=== PATIENT | female | born 1955 | race Caucasian/White ===

== ENCOUNTER 2022-06-22 00:08 | Observation (INO) ==
--- NOTE | 2022-06-22 00:21 | Emergency Department Note ---
History of Present Illness General Chief complaint: Hypertension Stated complaint: Headache, Nausea, Blurred Vision Time Seen by Provider: 06/22/22 00:09 Source: patient and EMS Mode of arrival: EMS Limitations: no limitations History of Present Illness Provider complaint: headache, vision changes, hypertension This is a 66-year-old female presents emergency room due to concern for headache, vision changes, and elevated blood pressure readings at home. Patient with a prior history of hypertension however after losing weight have been able to come off of her antihypertensive medications. She states she has been off them for more than a year now. She states over the course of the last week or so she has had markedly increased stress due to a family situation. She states she feels this is more likely the reason for her elevated blood pressure reading. She states she did contact her PCP but was not restarted on any antihypertensive medication as they told her it was likely situational. She is concerned though due to the consistently elevated BP readings the last week and the worsening symptoms. She states she has a sense of pressure and pain in her head, notices wavy lines and sparkling at the edge of her peripheral vision bilaterally, has been nauseated but without vomiting. She denies chest pain or trouble breathing, leg swelling, change in urine or stools, dizziness or lightheadedness. Home Medications Medication Instructions Recorded Confirmed Type escitalopram oxalate 10 mg tablet 10 mg PO QAM 06/22/22 06/22/22 History hydroxyzine HCl 10 mg tablet 10 mg PO Q8H PRN Anxiety 06/22/22 06/22/22 History ibuprofen 200 mg tablet 200 mg PO DIRECTED PRN Pain 06/22/22 06/22/22 History infliximab-dyyb 100 mg intravenous 0 mg IV .[id number] 06/22/22 06/22/22 History solution (Inflectra) Allergies Allergy/AdvReac Type Severity Reaction Status Date / Time No Known Allergies Allergy Mild Verified 06/22/22 00:40 Past Med/Surg History Social History Smoking Status: Unknown if ever smoked Tobacco Type: Cigarettes Second Hand Exposure: No; Do You Dip or Chew Tobacco: No; Tobacco Cessation Education Requested by Patient: No Hx Substance Use: No 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: No Beliefs That Will Affect Care: None Current Living Situation: Family Feels Safe at Home: No Is there a partner from a previous relationship who is making you feel unsafe now?: No Any Concerns about Your Family Situation: Yes (PFA against KOURTNEY Gomes) Safety Concerns: Afraid for Self Review of Systems A total of 10 systems reviewed and were otherwise negative All systems reviewed & are unremarkable except as noted in HPI & below Physical Exam Vital Signs Vital Signs - 24 hr 06/22/22 00:15 06/22/22 02:42 06/22/22 04:00 Temperature 37.2 C Temperature Source Oral Pulse Rate 87 Pulse Rate [Finger] 75 82 Pulse Rhythm Regular Pulse Rhythm [Finger] Regular Regular Pulse Strength Normal Pulse Strength [Finger] Normal Normal Respiratory Rate 18 18 18 Respiratory Effort / Characteristics Non-Labored Non-Labored Non-Labored Respiratory Depth Normal Normal Normal Respiratory Pattern Regular Regular Regular Blood Pressure 223/91 H Blood Pressure [Right Arm] 191/67 H 194/64 H Blood Pressure Mean 135 Blood Pressure Mean [Right Arm] 108 107 Blood Pressure Position Lying Blood Pressure Position [Right Arm] Lying Lying Pulse Oximetry 95 98 98 Oxygen Delivery Method Room Air Room Air Room Air Sepsis Recent Fever Within 48 Hours No Sepsis New/Unexplained Change in Mental Status No Sepsis Action Taken by Nursing No Action Required 06/22/22 05:00 06/22/22 06:00 Temperature Temperature Source Pulse Rate Pulse Rate [Finger] 64 63 Pulse Rhythm Pulse Rhythm [Finger] Regular Regular Pulse Strength Pulse Strength [Finger] Normal Normal Respiratory Rate 16 16 Respiratory Effort / Characteristics Non-Labored Non-Labored Respiratory Depth Normal Normal Respiratory Pattern Regular Regular Blood Pressure Blood Pressure [Right Arm] 187/76 H 188/71 H Blood Pressure Mean Blood Pressure Mean [Right Arm] 113 110 Blood Pressure Position Blood Pressure Position [Right Arm] Lying Lying Pulse Oximetry 98 95 Oxygen Delivery Method Room Air Room Air Sepsis Recent Fever Within 48 Hours Sepsis New/Unexplained Change in Mental Status Sepsis Action Taken by Nursing GENERAL: alert, well appearing, well nourished, no distress, non-toxic EYE EXAM: normal conjunctiva, PERRL and EOM's grossly intact OROPHARYNX: no exudate, no erythema, lips, buccal mucosa, and tongue normal and mucous membranes are moist NECK: supple, no nuchal rigidity, no adenopathy, non-tender LUNGS: Clear to auscultation. Normal chest wall mechanics, no w/r/r HEART: no murmurs, S1 normal and S2 normal ABDOMEN: abdomen soft, non-tender, normo-active bowel sounds, no masses, no rebound or guarding. BACK: Back is symmetrical on inspection and there is no deformity, no midline tenderness, no CVA tenderness. SKIN: no rashes and no bruising UPPER EXTREMITIES: upper extremities are grossly normal. FROM, nml pulses b/l. LOWER EXTREMITIES: No pitting edema. FROM, nml pulses b/l. NEURO EXAM: Normal sensorium, cranial nerves II-XII grossly intact, normal speech, no gross weakness of arms, no gross weakness of legs. Gross sensation intact. Course Course 0120: BP improved although still elevated. With assistance from case management, we have obtained copies of prior outpatient medications. [facility] records reveal patient had previously been taking metoprolol and losartan. 0502: BP still elevated. 0625: MIRELES now returning. Nauseated also. BP still elevated despite prior meds. 0632: Discussed with Dr. Zuniga. Administered Medications Acetaminophen (Acetaminophen 325 Mg Tab) 650 mg PO Q4H PRN PRN Reason: Pain or Fever Stop: 07/22/22 09:31 Last Admin: 06/22/22 14:58 Dose: 650 mg Documented By: CORAL Enoxaparin Sodium (Enoxaparin Inj 40 Mg/0.4 Ml Syr) 40 mg SQ Q12H [facility] Stop: 07/22/22 09:31 Last Admin: 06/22/22 21:25 Dose: 40 mg Documented By: Admin: 06/22/22 12:23 Dose: 40 mg Documented By: SUJATA Escitalopram Oxalate (Escitalopram Oxalate 10 Mg Tab) 10 mg PO [facility] Stop: 07/22/22 09:31 Last Admin: 06/22/22 12:23 Dose: 10 mg Documented By: SUJATA HCTZ/Losartan Potassium (Losartan/Hctz 50/12.5mg Tab) 1 tab PO [facility] Stop: 07/22/22 09:31 Last Admin: 06/22/22 12:23 Dose: 1 tab Documented By: SUJATA Metoprolol Succinate (Metoprolol Succ 25mg Ext Rel Tab) 12.5 mg PO [facility] Stop: 07/22/22 14:59 Last Admin: 06/22/22 15:52 Dose: 12.5 mg Documented By: SUJATA Discontinued Medications Hydralazine HCl (Hydralazine Hcl 20 Mg/Ml Vial) 5 mg IV NOW ONE Stop: 06/22/22 06:22 Last Admin: 06/22/22 06:37 Dose: 5 mg Documented By: DEXTER Sodium Chloride (Nss 1000ml) 1,000 mls @ 125 mls/hr IV .Q8H [facility] Stop: 07/22/22 00:29 Last Admin: 06/22/22 09:42 Dose: Not Given Documented By: Infusion: 06/22/22 09:00 Dose: 0 mls/hr Documented By: Admin: 06/22/22 00:51 Dose: 125 mls/hr Documented By: DEXTER Magnesium Sulfate/Dextrose (Magnesium Sulfate / D5w) 1 gm in 100 mls @ 100 mls/hr IV NOW STA Stop: 06/22/22 02:48 Last Infusion: 06/22/22 03:40 Dose: 0 mls/hr Documented By: Admin: 06/22/22 02:39 Dose: 100 mls/hr Documented By: DEXTER Acetaminophen (Ofirmev) 1,000 mg in 100 mls @ 400 mls/hr IV NOW STA Stop: 06/22/22 02:03 Last Infusion: 06/22/22 03:00 Dose: 0 mls/hr Documented By: Admin: 06/22/22 02:39 Dose: 400 mls/hr Documented By: DEXTER Acetaminophen (Ofirmev) 1,000 mg in 100 mls @ 400 mls/hr IV NOW STA Stop: 06/22/22 06:36 Last Infusion: 06/22/22 08:33 Dose: 0 mls/hr Documented By: Admin: 06/22/22 06:37 Dose: 400 mls/hr Documented By: DEXTER Ioversol (Optiray 320 500ml) 125 ml IV ONCE ONE Stop: 06/22/22 02:03 Last Admin: 06/22/22 02:03 Dose: 109 ml Documented By: XANDER Lorazepam (Lorazepam 0.5 Mg Tab) 0.5 mg PO NOW STA Stop: 06/22/22 07:00 Last Admin: 06/22/22 07:16 Dose: 0.5 mg Documented By: DAVE Losartan Potassium (Losartan Potassium 25 Mg Tab) 25 mg PO NOW STA Stop: 06/22/22 04:18 Last Admin: 06/22/22 04:48 Dose: 25 mg Documented By: DEXTER Metoprolol Tartrate (Metoprolol Tartrate 25 Mg Tab) 12.5 mg PO NOW STA Stop: 06/22/22 03:13 Last Admin: 06/22/22 03:56 Dose: 12.5 mg Documented By: DEXTER Ondansetron HCl (Ondansetron Inj 2 Mg/Ml 2 Ml Vial) 4 mg IV NOW STA Stop: 06/22/22 02:41 Last Admin: 06/22/22 02:44 Dose: 4 mg Documented By: DEXTER Medical Decision Making Differential Diagnosis Benign hypertension, hypertensive emergency, situational, noncompliance, cardiovascular pathology, toxicologic, pheochromocytoma, electrolyte abnormality, renal disease, end organ damage, as well as other pathologies. Medical Records Attestation: I reviewed the patient's medical records. Home Medications Current Medication List: was personally reviewed by me Laboratory Data Attestation: I reviewed the patient's lab results. 06/22/22 00:59 06/22/22 00:59 Lab Results 06/22/22 06/22/22 06/22/22 Range/Units 00:38 00:59 00:59 WBC 10.71 (4.8-10.8) K/ul RBC 5.13 (3.93-5.22) M/uL Hgb 15.4 (12.0-16.0) g/dl Hct 46.6 H (34.1-44.9) % MCV 90.8 (80.0-100.0) fL MCH 30.0 (25.0-34.0) pg MCHC 33.0 (32.0-36.0) g/dL RDW Std Deviation 43.8 (36.4-46.3) fL RDW Coeff of [place] 13.2 (11.5-14.5) % Plt Count 273 (130-400) K/uL MPV 9.4 (9.4-12.3) fL Immature Gran % (Auto) 0.4 % Neut % (Auto) 61.8 % Lymph % (Auto) 28.2 % [place] % (Auto) 7.7 % Eos % (Auto) 1.5 % Baso % (Auto) 0.4 % Neut # (Auto) 6.62 H (1.4-6.5) K/uL Lymph # (Auto) 3.02 (1.2-3.4) K/uL [place] # (Auto) 0.83 H (0.24-0.82) K/uL Eos # (Auto) 0.16 (0-0.50) K/uL Baso # (Auto) 0.04 (0-0.2) K/uL Immature Gran # (Auto) 0.04 H (0.00-0.02) K/uL Sodium 139 (136-145) mmol/L Potassium 3.9 (3.5-5.1) mmol/L Chloride 104 (98-107) mmol/L Carbon Dioxide 28 (21-32) mmol/L Anion Gap 7 (3-11) BUN 19 (6-23) mg/dl Creatinine 0.86 (0.6-1.2) mg/dl Est Cr Clr Drug Dosing 76.9 ml/min Est GFR ( Amer) 80.5 ml/min Est GFR (Non-Af Amer) 69.4 ml/min BUN/Creatinine Ratio 22.1 H (10-20) Glucose 111 H (70-99(Fasting)) mg/dl Calcium 9.4 (8.5-10.1) mg/dl Magnesium 1.7 (1.7-2.4) mg/dl Total Bilirubin 0.6 (0.2-1.0) mg/dl AST 15 (13-39) U/L ALT 14 (7-52) U/L Alkaline Phosphatase 59 (34-104) U/L Troponin I High Sens 9.8 (0-14) pg/ml Total Protein 7.8 (6.0-8.3) gm/dl Albumin 4.2 (3.4-5.0) gm/dl Globulin 3.6 (2.5-4.0) gm/dl Albumin/Globulin Ratio 1.2 (0.9-2) Lipase 39 (11-82) U/L TSH (0.300-4.500) uIu/ml Urine Color Yellow Urine Appearance Clear (Clear) Urine pH 6.0 (4.5-7.5) Ur Specific [place] 1.020 (1.000-1.030) Urine Protein Trace H (Negative) Urine Glucose (UA) Negative (Negative) Urine Ketones Trace H (Negative) Urine Blood Negative (Negative) Urine Nitrite Negative (Negative) Urine Bilirubin Negative (Negative) Urine Urobilinogen Negative (Negative) Ur Leukocyte Esterase 1+ H (Negative) Urine WBC (Auto) 5-10 H (0-5) /hpf Urine RBC (Auto) 0-4 (0-4) /hpf U Hyaline Cast (Auto) 0 (0-5) /lpf U Epithel Cells (Auto) >30 H (0-5) /lpf Urine Bacteria (Auto) Negative (Negative) SARS-CoV-2, RNA, NAAT (NEGATIVE) 06/22/22 06/22/22 Range/Units 00:59 06:43 WBC (4.8-10.8) K/ul RBC (3.93-5.22) M/uL Hgb (12.0-16.0) g/dl Hct (34.1-44.9) % MCV (80.0-100.0) fL MCH (25.0-34.0) pg MCHC (32.0-36.0) g/dL RDW Std Deviation (36.4-46.3) fL RDW Coeff of [place] (11.5-14.5) % Plt Count (130-400) K/uL MPV (9.4-12.3) fL Immature Gran % (Auto) % Neut % (Auto) % Lymph % (Auto) % [place] % (Auto) % Eos % (Auto) % Baso % (Auto) % Neut # (Auto) (1.4-6.5) K/uL Lymph # (Auto) (1.2-3.4) K/uL [place] # (Auto) (0.24-0.82) K/uL Eos # (Auto) (0-0.50) K/uL Baso # (Auto) (0-0.2) K/uL Immature Gran # (Auto) (0.00-0.02) K/uL Sodium (136-145) mmol/L Potassium (3.5-5.1) mmol/L Chloride (98-107) mmol/L Carbon Dioxide (21-32) mmol/L Anion Gap (3-11) BUN (6-23) mg/dl Creatinine (0.6-1.2) mg/dl Est Cr Clr Drug Dosing ml/min Est GFR ( Amer) ml/min Est GFR (Non-Af Amer) ml/min BUN/Creatinine Ratio (10-20) Glucose (70-99(Fasting)) mg/dl Calcium (8.5-10.1) mg/dl Magnesium (1.7-2.4) mg/dl Total Bilirubin (0.2-1.0) mg/dl AST (13-39) U/L ALT (7-52) U/L Alkaline Phosphatase (34-104) U/L Troponin I High Sens (0-14) pg/ml Total Protein (6.0-8.3) gm/dl Albumin (3.4-5.0) gm/dl Globulin (2.5-4.0) gm/dl Albumin/Globulin Ratio (0.9-2) Lipase (11-82) U/L TSH 2.403 (0.300-4.500) uIu/ml Urine Color Urine Appearance (Clear) Urine pH (4.5-7.5) Ur Specific [place] (1.000-1.030) Urine Protein (Negative) Urine Glucose (UA) (Negative) Urine Ketones (Negative) Urine Blood (Negative) Urine Nitrite (Negative) Urine Bilirubin (Negative) Urine Urobilinogen (Negative) Ur Leukocyte Esterase (Negative) Urine WBC (Auto) (0-5) /hpf Urine RBC (Auto) (0-4) /hpf U Hyaline Cast (Auto) (0-5) /lpf U Epithel Cells (Auto) (0-5) /lpf Urine Bacteria (Auto) (Negative) SARS-CoV-2, RNA, NAAT NEGATIVE (NEGATIVE) Imaging Data My Impression: X-ray: I interpreted the following studies. Chest: A single view study of the chest was reviewed and was negative for cardiomegaly, focal infiltrate, effusion, pulmonary edema, or wide mediastinum. Radiologist's Impression: CT HEAD: Comparison 08/16/21. No acute intracranial abnormality. Mucus retention cyst right maxillary sinus. Radiologist: Lucia Casey MD CTA head: No large vessel occlusion, vascular malformation or visible aneurysm. Radiologist: Lucia Casey MD CTA neck: Patent bilateral carotid and vertebral arteries with no evidence of dissection or substantial stenosis. Radiologist: Lucia aCsey MD ECG Data Attestation: I personally reviewed and interpreted this ECG as follows: Indication: + nausea and + other Rate (beats per minute): 77 Rhythm: + normal sinus ECG Intervals/blocks: + Normal QRS and + Normal QT ECG [place]: + Normal ECG ST segments: + Normal ST segments MDM Narrative An order was placed for continuous cardiac monitoring. The monitor shows a rate of _68_ with _normal sinus__ rhythm. This is a 66-year-old female presents emergency department due to concern for headache, vision changes, nausea with accompanying elevated blood pressure readings from home. Patient with prior history of hypertension, recently elevated again however patient felt this was likely secondary to recent stress. Due to accompanying symptoms, labs drawn and sent, IV established, EKG obtained, cxr performed at bedside, and patient sent for CT/CTA. Patient started on IV fluids. Several BPs were allowed to recycle and continued to be persistently elevated despite giving patient medication for nausea, headache, as well as accompanying IV fluids. After reviewing outside records from her [facility] chart, began adding back patient's prior oral blood pressure medications. Patient did have some temporary relief of her symptoms blood pressure continued to be elevated. Patient's labs and imaging were reassuring. Patient had no improvement after addition of her to prior blood pressure medications with accompanying hydration, symptomatic control in case pain was contributing to the elevated readings, as well as the addition of IV magnesium due to borderline hypomagnesemia. Patient then given IV medications and we discussed the potential need for additional inpatient treatment and evaluation. Given recurrent headaches and nausea while in the department accompanied with persistent hypertension despite several medications, case discussed with hospitalist for additional evaluation and treatment. At this time I have no evidence of hypertensive emergency. Patient was noted to have frequent PVCs on telemetry which she states she has previously been told of. I do not suspect occult infectious etiology, ACS, acute vascular emergency, or other acute neurologic emergency contributing to her symptoms at this time. No evidence for CAMMIE. Impression & Plan Hypertension, Headache, Nausea Discharge Plan Visit Data Chief Complaint: Hypertension Stated Complaint: Headache, Nausea, Blurred Vision ED Provider: Alyce Finch Discharge Problem: Hypertension, Headache, Nausea Patient Disposition: Admitted As Inpatient Discharge Instructions Interventions: ED Discharge Assessment Last Done: 06/22/22 09:33
[2022-06-22] MEDS: SODIUM CHLORIDE 0.9% 1000ML 1,000 ML IV SCH ×2 (00:51→09:42)
[2022-06-22 00:56] LABS: Appearance Urine Clear (Clear); Bacteria Urine Automated Negative (Negative); Bilirubin Urine Negative (Negative); Blood Urine Negative (Negative); Cast Urine Automated 0 /lpf (0-5); Color Urine Yellow; Epithelial Cell Urine Auto >30 /lpf (0-5); Glucose Urine UA Negative (Negative); Ketones Urine Trace (Negative); Leukocyte Esterase Urine 1+ (Negative); Nitrite Urine Negative (Negative); Protein Urine Trace (Negative); RBC Urine Automated 0-4 /hpf (0-4); Urobilinogen Urine Negative (Negative)
[2022-06-22 01:08] LABS: Basophils # (auto) 0.04 K/uL (0-0.2); Basophils % (auto) 0.4 %; Eosinophils # (auto) 0.16 K/uL (0-0.50); Eosinophils % (auto) 1.5 %; Hematocrit (blood only) 46.6 % (34.1-44.9); Hemoglobin 15.4 g/dl (12.0-16.0); Immature Granulocytes # (auto) 0.04 K/uL (0.00-0.02); Immature Granulocytes % (auto) 0.4 %; Lymphocytes # (auto) 3.02 K/uL (1.2-3.4); Lymphocytes % (auto) 28.2 %; Mean Corpuscular Volume 90.8 fL (80.0-100.0); Mean Platelet Volume 9.4 fL (9.4-12.3); Monocytes # (auto) 0.83 K/uL (0.24-0.82); Monocytes % (auto) 7.7 %; Neutrophils # (auto) 6.62 K/uL (1.4-6.5); Neutrophils % (auto) 61.8 %; Platelet Count 273 K/uL (130-400); RDW Coefficient of Variation 13.2 % (11.5-14.5); RDW Standard Deviation 43.8 fL (36.4-46.3); Red Blood Count 5.13 M/uL (3.93-5.22); White Blood Count 10.71 K/ul (4.8-10.8)
[2022-06-22 01:35] LABS: Albumin Globulin Ratio 1.2 (0.9-2); Albumin Level 4.2 gm/dl (3.4-5.0); BUN Creatinine Ratio 22.1 (10-20); Bilirubin,Total 0.6 mg/dl (0.2-1.0); Calcium 9.4 mg/dl (8.5-10.1); Creatinine Clr Calc Pharmacy 76.9 ml/min; Est GFR (African American) 80.5 ml/min; Est GFR (Non-African American) 69.4 ml/min; Globulin 3.6 gm/dl (2.5-4.0); Magnesium 1.7 mg/dl (1.7-2.4); Potassium 3.9 mmol/L (3.5-5.1); Total Protein 7.8 gm/dl (6.0-8.3); Troponin I High Sensitivity 9.8 pg/ml (0-14)
[2022-06-22] MEDS ORDERED: MAGNESIUM SULFATE / D5W 1 GM/100 ML BAG IV STA (01:49)
[2022-06-22] MEDS ORDERED: ACETAMINOPHEN 1,000 MG/100 ML VIAL IV STA ×2 (01:49→06:22)
[2022-06-22] MEDS ORDERED: OPTIRAY 320 500ml IV ONE (02:02)
[2022-06-22] MEDS ORDERED: ONDANSETRON INJ 2 MG/ML 2 ML VIAL IV STA (02:40)
[2022-06-22] MEDS ORDERED: METOPROLOL TARTRATE 25 MG TAB PO STA (03:12)
[2022-06-22] MEDS ORDERED: LOSARTAN POTASSIUM 25 MG TAB PO STA (04:17)
[2022-06-22] MEDS ORDERED: hydrALAZINE HCL 20 MG/ML VIAL IV ONE (06:21)
[2022-06-22] MEDS ORDERED: LORazepam 0.5 MG TAB PO STA (06:59)
--- NOTE | 2022-06-22 07:07 | CT Scan Report ---
CT angio neck with con, CT head/brain wo con, CT angio head w con CLINICAL HISTORY: arzate, htn, vis change TECHNIQUE: Contiguous axial CT images of the head were acquired from the base of the skull to the edilson senait without intravenous contrast administration. CT angiography of the head and neck was performed f ollowing intravenous administration of iodinated contrast. Coronal and sagittal MIPS were obtained fr om the axial data set and were submitted for review. Automated dose lowering techniques and/or adjus tment according to patient size were utilized for this examination. All measurements were calculated based on NASCET criteria. CT DOSE: 1276.84 mGy.cm Comparison: Comparison is made to CT head 08/16/2021 FINDINGS: CT head: There is no acute intracranial hemorrhage or evidence of acute territorial infarction. No sh ift of the midline structures, mass effect, or extra-axial abnormalities are shown. There is a right maxillary mucous retention cyst. Lungs and soft tissues are unremarkable. CTA Neck: A 3 vessel aortic arch is shown. There is no significant atherosclerotic plaque in the aor tic arch or the origins of the innominate, left common carotid, and left subclavian arteries. The c ommon carotid, external carotid, cervical segments of the internal carotid arteries, and the cervical segments of the vertebral arteries are patent without hemodynamically significant stenosis. The left vertebral artery is dominant. CTA Head: The anterior and posterior cerebral circulations are patent. No hemodynamically significan t stenosis, aneurysm, dissection, or arteriovenous malformation is shown. IMPRESSION: 1. No acute intracranial hemorrhage, evidence of acute territorial infarction, or other acute intrac ranial disease process. 2. No occlusion, hemodynamically significant stenosis, or dissection in the major cervical arteries. 3. No occlusion, hemodynamically significant stenosis, aneurysm, dissection, or arteriovenous malfor mation in the major intracranial arteries. 4. Right maxillary mucous retention cyst. Assessment of stenosis of the internal carotid arteries is based on NASCET criteria. ACT 112: Negative or not required by law. Electronically signed by: Kt Bee M.D. 06/22/2022 7:05 AM
--- NOTE | 2022-06-22 07:23 | XRay Report ---
XR chest 1V portable CLINICAL HISTORY: Hypertension. COMPARISON STUDY: Chest CT May 18, 2008. FINDINGS: Lung volumes are diminished. Lungs are clear. There is no pneumothorax or pleural effusion. Cardiac size is normal. Mediastinal contours are normal. There is no evidence for pulmonary edema. IMPRESSION: No acute cardiopulmonary findings. ACT 112: Negative or not required by law. Electronically signed by: Juvenal Fields M.D. 06/22/2022 7:21 AM
--- NOTE | 2022-06-22 08:05 | History and Physical Report ---
DATE OF ADMISSION: 06/22/2022. CHIEF COMPLAINT: Hypertensive urgency. HISTORY OF PRESENT ILLNESS: This is a 66-year-old female with past medical history significant for hyperlipidemia, paroxysmal atrial tachycardia, hypertension, sinus bradycardia, first-degree AV block, incomplete right bundle- branch block, psoriatic arthropathy, inverse psoriasis, depression, generalized anxiety disorder, presents with elevated blood pressure. The patient used to be on blood pressure medications, losartan 50 mg and Toprol-XL 25 mg in the past about a year ago. This was stopped, because she lost 75 pounds and is following with PCP. Lately, she has lot of stress at home and last several days she is having headaches and last 3 days, her blood pressure was going up into 170s, so she came here. When she came in, her blood pressure was high at 223/91. ER was given losartan 25 mg and metoprolol tartrate 12.5 mg, the blood pressure not improved. She was also given a dose of 5 mg IV of hydralazine, still her blood pressure was in 180s. So, we were called for admission. The patient still has some mild headache. She has some blurred visions. No dizziness, no earache, no runny nose, no sore throat, no cough. Has some nausea.Appetite is ok. No difficulty swallowing. No chest pain, no shortness of breath, no abdominal pain. Normal bowel and bladder movements. No blood in stools or black stools. No edema in the legs. ALLERGIES: No known drug allergies. PAST MEDICAL HISTORY: As mentioned above. PAST SURGICAL HISTORY: Colonoscopy, ligation of oviducts, tonsillectomy, total abdominal hysterectomy with removal of tubes, vaginal hysterectomy. MEDICATIONS: Currently, the patient is on Lexapro 10 mg p.o. a.m.,Ibuprofen prn, hydroxyzine 10 mg p.o. q. 8 hours p.r.n. for anxiety, Inflectra q.12 weeks. FAMILY HISTORY: Significant for mother had uterine cancer, father had depression, paternal grandfather had cancer, maternal grandmother had cancer. SOCIAL HISTORY: . Quit smoking in 2017, smoked 3/4 pack a day for 45 years. Alcohol, rarely. Uses marijuana as per Epic. REVIEW OF SYSTEMS: As per HPI. Rest of review of systems is negative. PHYSICAL EXAMINATION: GENERAL: The patient is obese, not in acute distress. VITAL SIGNS: Temperature 37.2, pulse 63, respiratory rate 16, blood pressure 188/71, oxygen 95% on room air. HEENT: Pupils are equal, round and reactive to light. Oral mucosa moist. NECK: No JVD. No neck masses. CARDIOVASCULAR: S1 and S2 heard. Regular rate and rhythm. No murmur, no gallop. RESPIRATORY SYSTEM: Normal AP diameter. No accessory muscle use. No wheezing, no crackles. ABDOMEN: Soft, bowel sounds present, nontender, no distention. CENTRAL NERVOUS SYSTEM: Cranial nerves II-XII grossly intact, nonfocal. EXTREMITIES: No edema, no erythema. LABORATORY DATA: WBC 10.7, hemoglobin 15.4, hematocrit 46.6, platelets 273. Sodium 139, potassium 3.9, chloride 104, bicarb 28, BUN 19, creatinine 0.8, serum glucose 111, calcium 9.4, magnesium 1.7, total bilirubin 0.6, AST 15, ALT 14, alkaline phosphatase 59. Troponin I high sensitivity 9.8, lipase 39. TSH is 2.4. Urinalysis, +1 leukocyte esterase, bacteria negative. SARS-CoV-2 rapid test negative. IMAGING DATA: CTA of the head and neck, no acute findings. CT of the head, no acute findings. Right maxillary sinus mucous retention cyst. Chest x-ray, no acute findings. EKG: Normal sinus rhythm at a rate of 77, left axis deviation. ASSESSMENT AND PLAN: This is a 66-year-old female who presents with hypertensive urgency. 1. Hypertensive urgency. The patient is to be on losartan 50 mg and Toprol-XL 25 mg daily. Last year it was stopped because she lost about 75 pounds of weight,currently coming with elevated blood pressure,Lately has lot of stress at home. ER gave dose of losartan 25 mg and metoprolol tartrate 12.5 mg and dose of IV hydralazine 5 mg, still the blood pressure in 180s. When she came in, it was in 220s.We will place her on Hyzaar 50/12.5 mg daily, IV hydralazine p.r.n. We will get an echocardiogram. Monitor in [place]. Consult cardiology for further recommendations. 2. Depression and general anxiety disorder. Continue Lexapro. 3. History of psoriasis. Continue home medications. 4. History of sinus bradycardia. We will monitor. 5. DVT prophylaxis. Lovenox. DISPOSITION: Monitor in the med tele. PT/OT prior to discharge. Social service to help with discharge planning. Job ID: [id number] [facility]
--- NOTE | 2022-06-22 08:09 | Electrocardiogram Report ---
Test Reason : Blood Pressure : / mmHG Vent. Rate : 077 BPM Atrial Rate : 077 BPM P-R Int : 176 ms QRS Dur : 084 ms QT Int : 364 ms P-R-T Axes : 017 -39 028 degrees QTc Int : 411 ms Normal sinus rhythm Left axis deviation Low voltage QRS Possible Old Inferior infarct Possible Old Anteroseptal infarct Abnormal ECG No previous ECGs available Confirmed by Ankur Rosenbaum ([id number]) on 06/22/2022 8:08:53 AM Referred By: REFERRED SELF Confirmed By:Ankur Rosenbaum
[2022-06-22] MEDS ORDERED: hydrALAZINE HCL 20 MG/ML VIAL IV PRN (09:32)
[2022-06-22] MEDS ORDERED: hydrOXYzine HCl 10 MG TAB PO PRN (09:32)
[2022-06-22] MEDS ORDERED: NITROGLYCERIN SL 0.4 MG/TAB TAB SL PRN (09:32)
[2022-06-22] MEDS ORDERED: ONDANSETRON INJ 2 MG/ML 2 ML VIAL IV PRN (09:32)
[2022-06-22] MEDS ORDERED: POLYETHYLENE (MIRALAX) 17 GM PACK PO PRN (09:32)
[2022-06-22] MEDS: ENOXAPARIN INJ 40 MG/0.4 ML SYR SQ SCH ×2 (12:23→21:25)
[2022-06-22] MEDS: ESCITALOPRAM OXALATE 10 MG TAB PO SCH (12:23)
[2022-06-22] MEDS: LOSARTAN/HCTZ 50/12.5MG TAB PO SCH (12:23)
--- NOTE | 2022-06-22 14:44 | Cardiology Consultation ---
Date of Consultation June 22, 2022 Assessment & Plan (1) Hypertensive urgency: (2) PAT (paroxysmal atrial tachycardia): Plan Complex 66-year-old female presents with hypertension with hypertensive urgency. Patient treated in ER with losartan 25 mg with metoprolol tartrate 12.5 mg and IV hydralazine with improved blood pressure but still Patient begun on losartan/hydrochlorothiazide Currently asymptomatic Given past history of paroxysmal atrial tachycardia we will add back metoprolol succinate 12.5 mg/day. Discussed hypertension hypertensive urgency warranting at least 2 drug regimen Echocardiogram to be reviewed currently no signs of heart failure or myocardial ischemia History of Present Illness Reason for Consultation: Hypertension with hypertensive urgency Requesting Physician: Dr. Somers Attending Physician: Jace Somers MD History of Present Illness Patient is a 66-year-old female with prior history of hypertension referred for evaluation after acute presentation with marked hypertension and headaches. Patient previously treated with a 2 drug regimen, metoprolol and losartan but noted medications were discontinued after deliberate weight loss. Yesterday noted sensations of blood pressure being elevated with flushing and headache in setting of acute emotional stressors at home. She checked blood pressure and found to be markedly elevated and presented to the ER No evidence of congestive heart failure or pulmonary edema No chest pain or worsening shortness of breath Ongoing cardiac concerns include 1. Hypertension 2. Paroxysmal atrial tachycardia and chronic ventricular ectopy on event monitor 2020 3. Prior sinus bradycardia 4. Hyperlipidemia Allergies Allergy/AdvReac Type Severity Reaction Status Date / Time No Known Allergies Allergy Mild Verified 06/22/22 00:40 Home Medications Medication Instructions Recorded Confirmed Type escitalopram oxalate 10 mg tablet 10 mg PO QAM 06/22/22 06/22/22 History hydroxyzine HCl 10 mg tablet 10 mg PO Q8H PRN Anxiety 06/22/22 06/22/22 History ibuprofen 200 mg tablet 200 mg PO DIRECTED PRN Pain 06/22/22 06/22/22 History infliximab-dyyb 100 mg intravenous 0 mg IV .Q12WKS 06/22/22 06/22/22 History solution (Inflectra) Patient History Social History Smoking Status: Unknown if ever smoked Tobacco Type: Cigarettes Second Hand Exposure: No; Do You Dip or Chew Tobacco: No; Tobacco Cessation Education Requested by Patient: No Hx Substance Use: No Preferred Language: Estonian Aligning Checker Required: No Beliefs That Will Affect Care: None Current Living Situation: Family Feels Safe at Home: No Is there a partner from a previous relationship who is making you feel unsafe now?: No Any Concerns about Your Family Situation: Yes (PFA against KOURTNEY Gomes) Safety Concerns: Afraid for Self Review of Systems Review of Systems: All systems reviewed & are unremarkable except as noted in HPI & below Physical Exam Constitutional: + obese; no acute distress Eyes: PERRL, conjunctivae normal, anicteric sclerae ENMT: external ear and nose normal, oropharynx normal Neck: trachea midline, no thyromegaly Respiratory: normal respiratory effort, lungs clear to auscultation Cardiovascular: RRR, no murmur, no edema Gastrointestinal (Abdomen): normal bowel sounds, soft, nontender, no hepatosplenomegaly Results & Data ([facility]) Vital Signs (Past 12 Hours) Vital Signs Temp Pulse Resp BP Pulse Ox O2 Del Method 06/22/22 11:34 36.9 C 64 16 174/84 H 92 Room Air 06/22/22 11:12 71 20 167/81 H 98 Room Air 06/22/22 06:00 63 16 188/71 H 95 Room Air 06/22/22 05:00 64 16 187/76 H 98 Room Air 06/22/22 04:00 82 18 194/64 H 98 Room Air 06/22/22 02:42 75 18 191/67 H 98 Room Air Laboratory Results Laboratory Results - last 24 hr 06/22/22 06/22/22 06/22/22 00:38 00:59 00:59 WBC 10.71 RBC 5.13 Hgb 15.4 Hct 46.6 H MCV 90.8 MCH 30.0 MCHC 33.0 RDW Std Deviation 43.8 RDW Coeff of [place] 13.2 Plt Count 273 MPV 9.4 Immature Gran % (Auto) 0.4 Neut % (Auto) 61.8 Lymph % (Auto) 28.2 [place] % (Auto) 7.7 Eos % (Auto) 1.5 Baso % (Auto) 0.4 Neut # (Auto) 6.62 H Lymph # (Auto) 3.02 [place] # (Auto) 0.83 H Eos # (Auto) 0.16 Baso # (Auto) 0.04 Immature Gran # (Auto) 0.04 H Sodium 139 Potassium 3.9 Chloride 104 Carbon Dioxide 28 Anion Gap 7 BUN 19 Creatinine 0.86 Est Cr Clr Drug Dosing 76.9 Est GFR ( Amer) 80.5 Est GFR (Non-Af Amer) 69.4 BUN/Creatinine Ratio 22.1 H Glucose 111 H Calcium 9.4 Magnesium 1.7 Total Bilirubin 0.6 AST 15 ALT 14 Alkaline Phosphatase 59 Troponin I High Sens 9.8 Total Protein 7.8 Albumin 4.2 Globulin 3.6 Albumin/Globulin Ratio 1.2 Lipase 39 TSH Urine Color Yellow Urine Appearance Clear Urine pH 6.0 Ur Specific [place] 1.020 Urine Protein Trace H Urine Glucose (UA) Negative Urine Ketones Trace H Urine Blood Negative Urine Nitrite Negative Urine Bilirubin Negative Urine Urobilinogen Negative Ur Leukocyte Esterase 1+ H Urine WBC (Auto) 5-10 H Urine RBC (Auto) 0-4 U Hyaline Cast (Auto) 0 U Epithel Cells (Auto) >30 H Urine Bacteria (Auto) Negative SARS-CoV-2, RNA, NAAT 06/22/22 06/22/22 00:59 06:43 WBC RBC Hgb Hct MCV MCH MCHC RDW Std Deviation RDW Coeff of [place] Plt Count MPV Immature Gran % (Auto) Neut % (Auto) Lymph % (Auto) [place] % (Auto) Eos % (Auto) Baso % (Auto) Neut # (Auto) Lymph # (Auto) [place] # (Auto) Eos # (Auto) Baso # (Auto) Immature Gran # (Auto) Sodium Potassium Chloride Carbon Dioxide Anion Gap BUN Creatinine Est Cr Clr Drug Dosing Est GFR ( Amer) Est GFR (Non-Af Amer) BUN/Creatinine Ratio Glucose Calcium Magnesium Total Bilirubin AST ALT Alkaline Phosphatase Troponin I High Sens Total Protein Albumin Globulin Albumin/Globulin Ratio Lipase TSH 2.403 Urine Color Urine Appearance Urine pH Ur Specific [place] Urine Protein Urine Glucose (UA) Urine Ketones Urine Blood Urine Nitrite Urine Bilirubin Urine Urobilinogen Ur Leukocyte Esterase Urine WBC (Auto) Urine RBC (Auto) U Hyaline Cast (Auto) U Epithel Cells (Auto) Urine Bacteria (Auto) SARS-CoV-2, RNA, NAAT NEGATIVE ECG Additional Comments: 22-JUN-2022 00:43:40 [facility]-EDSTAT ROUTINE RETRIEVAL Normal sinus rhythm Left axis deviation Low voltage QRS Possible Old Inferior infarct Possible Old Anteroseptal infarct study reviewed and unchanged in comparison to prior study of 07/04/2020
[2022-06-22] MEDS: ACETAMINOPHEN 325 MG TAB PO PRN (14:58)
[2022-06-22] MEDS: METOPROLOL SUCC 25MG EXT REL TAB PO SCH (15:52)
--- NOTE | 2022-06-22 19:58 | Communication Note ---
Date of Service: June 22, 2022 Patient admitted today for HTN urgency. Seen and examined in room. Chart reviewed. Admitted for BP optimization. Appreciate Cardiology input BP has improved. Still feels very tired. Likely can be discharged home tomorrow pending medical stability. Full note in AM
[2022-06-23 06:33] LABS: Basophils # (auto) 0.04 K/uL (0-0.2); Basophils % (auto) 0.3 %; Eosinophils # (auto) 0.09 K/uL (0-0.50); Eosinophils % (auto) 0.8 %; Hematocrit (blood only) 45.8 % (34.1-44.9); Hemoglobin 15.4 g/dl (12.0-16.0); Immature Granulocytes # (auto) 0.05 K/uL (0.00-0.02); Immature Granulocytes % (auto) 0.4 %; Lymphocytes # (auto) 4.25 K/uL (1.2-3.4); Lymphocytes % (auto) 36.8 %; Mean Corpuscular Hemoglobin 30.1 pg (25.0-34.0); Mean Corpuscular Hgb Conc 33.6 g/dL (32.0-36.0); Mean Corpuscular Volume 89.6 fL (80.0-100.0); Mean Platelet Volume 9.8 fL (9.4-12.3); Monocytes # (auto) 0.72 K/uL (0.24-0.82); Monocytes % (auto) 6.2 %; Neutrophils % (auto) 55.5 %; Platelet Count 264 K/uL (130-400); RDW Coefficient of Variation 13.2 % (11.5-14.5); RDW Standard Deviation 43.5 fL (36.4-46.3); Red Blood Count 5.11 M/uL (3.93-5.22); White Blood Count 11.55 K/ul (4.8-10.8)
[2022-06-23 07:10] LABS: Calcium 9.2 mg/dl (8.5-10.1); Creatinine Clr Calc Pharmacy 102.3 ml/min; Est GFR (African American) 106.8 ml/min; Est GFR (Non-African American) 92.2 ml/min; Potassium 3.6 mmol/L (3.5-5.1)
[2022-06-23] MEDS: METOPROLOL SUCC 25MG EXT REL TAB PO SCH (09:33)
[2022-06-23] MEDS: ESCITALOPRAM OXALATE 10 MG TAB PO SCH (09:33)
[2022-06-23] MEDS: ENOXAPARIN INJ 40 MG/0.4 ML SYR SQ SCH (09:34)
[2022-06-23] MEDS: LOSARTAN/HCTZ 50/12.5MG TAB PO SCH (09:34)
[2022-06-23] MEDS: ACETAMINOPHEN 325 MG TAB PO PRN ×2 (09:39→14:36)
--- NOTE | 2022-06-23 13:18 | Cardiology Progress Note ---
Date of Service June 23, 2022 Assessment & Plan (1) Hypertensive urgency: (2) PAT (paroxysmal atrial tachycardia): Plan 1. Hypertensive urgency with longstanding hypertension. Currently controlled on combination therapy. Given past history of ventricular ectopy and PAT would continue low-dose beta-juanita with metoprolol succinate 12.5 mg daily. Would not titrate higher. Continue losartan/hydrochlorothiazide Add potassium 10 mg p.o. daily If blood pressure remains persistently elevated post discharge would consider low-dose amlodipine nocturnally Follow-up to be scheduled with PCP. Stable for discharge today Admission and Anticipated Discharge Date Admission Date: June 22, 2022 Subjective Patient seen and examined, chart, medications, telemetry reviewed. Headache resolved. Blood pressure much better controlled. No arrhythmias on telemetry Review of Systems Review of Systems: All systems reviewed & are unremarkable except as noted in Subjective Physical Exam Constitutional: WD/WN, vitals as above no acute distress Eyes: PERRL, conjunctivae normal, anicteric sclerae ENMT: external ear and nose normal, oropharynx normal Neck: trachea midline, no thyromegaly Respiratory: normal respiratory effort, lungs clear to auscultation Cardiovascular: RRR, no murmur, no edema Gastrointestinal (Abdomen): normal bowel sounds, soft, nontender, no hepatosplenomegaly Results & Data ([facility]) Vital Signs (Past 12 Hours) Vital Signs Temp Pulse Resp BP Pulse Ox O2 Del Method 06/23/22 10:57 36.6 C 78 16 135/71 95 Room Air 06/23/22 07:50 37.0 C 73 14 165/66 H 90 Room Air 06/23/22 02:36 36.8 C 85 18 147/76 H 94 Room Air Laboratory Results Laboratory Results - last 24 hr 06/23/22 06/23/22 05:24 05:24 WBC 11.55 H RBC 5.11 Hgb 15.4 Hct 45.8 H MCV 89.6 MCH 30.1 MCHC 33.6 RDW Std Deviation 43.5 RDW Coeff of [place] 13.2 Plt Count 264 MPV 9.8 Immature Gran % (Auto) 0.4 Neut % (Auto) 55.5 Lymph % (Auto) 36.8 [place] % (Auto) 6.2 Eos % (Auto) 0.8 Baso % (Auto) 0.3 Neut # (Auto) 6.40 Lymph # (Auto) 4.25 H [place] # (Auto) 0.72 Eos # (Auto) 0.09 Baso # (Auto) 0.04 Immature Gran # (Auto) 0.05 H Sodium 137 Potassium 3.6 Chloride 102 Carbon Dioxide 26 Anion Gap 9 BUN 12 Creatinine 0.63 Est Cr Clr Drug Dosing 102.3 Est GFR ( Amer) 106.8 Est GFR (Non-Af Amer) 92.2 BUN/Creatinine Ratio 19.0 Glucose 126 H Calcium 9.2 Magnesium 2.0
[2022-06-23] MEDS ORDERED: POTASSIUM CHLORIDE 10 MEQ TABCR PO SCH (13:30)
--- NOTE | 2022-06-23 15:17 | Discharge Summary ---
Date of Service June 23, 2022 Discharge Data Allergies Allergy/AdvReac Type Severity Reaction Status Date / Time No Known Allergies Allergy Mild Verified 06/22/22 00:40 Consultations 06/22/22 06:34 ED Decision to Admit Stat 06/22/22 09:32 Consult Cardiology Routine Ordered Studies 06/22/22 00:18 CT angio head w con Stat CT angio neck with con Stat CT head/brain wo con Stat Discharge Plan Discharge Items Patient Disposition: Home - Self-Care Reason For Visit: HTN Discharge Diagnosis: (1) Hypertensive urgency: (2) PAT (paroxysmal atrial tachycardia): Activity: Resume your previous activity Non-emergency contact: Primary Care Provider Call non-emergency contact if: you have any medication questions Follow-up/Referrals: Rosemary Hernandez DO [Primary Care Provider] - (Date & Time 06/25/2022 10:20 AM Provider Rosemary Hernandez DO Department [facility] [address], [place] ) Diet: Heart Healthy Addtl Attending Provider Instructions: Follow up with your primary care provider Continue monitor your blood pressure Please bring your blood pressure log at your next appointment with your provider Check BMP in 1 week to monitor electrolytes and renal function Seek medical attention if your symptoms worsening Pending Studies at Discharge: No Stand-Alone Forms: My [employer], Smoking Cessation Medications and DC Order Prescriptions: New metoprolol succinate 25 mg Tablet Extended Release 24 Hr 12.5 mg PO QAM Qty: 30 0RF losartan-hydrochlorothiazide 50-12.5 mg Tablet 1 tab PO QAM 30 Days Qty: 30 0RF potassium chloride 10 mEq Tablet,Er Particles/Crystals 10 meq PO DAILY Qty: 30 0RF Continued ibuprofen 200 mg Tablet 200 mg PO DIRECTED PRN (Reason: Pain) hydroxyzine HCl 10 mg tablet 10 mg PO Q8H PRN (Reason: Anxiety) escitalopram oxalate 10 mg tablet 10 mg PO QAM Inflectra 100 mg Recon Soln 0 mg IV .Q12WKS Rx Instructions: PER PT "DUE 06/22/22". Discharge Orders: Discharge Order (Routine); Ordered 06/23/22 Ordered By: Kilo Barfield Admission Data Admit Date/Time: 06/22/22 07:03 Attending Provider: Kilo Barfield Admit Provider: Thierno Zuniga Primary Care Provider: Rosemary Hernandez Other Providers: Thierno Zuniga ; Chau Kennedy ; Juanpablo Gaary ; Valentin Hugo ; Shemar Rodriguez ; Uvaldo Mera ; Dion De Santiago ; Anel Parker ; Eloise Wong ; Celestina Senior ; Robert Cosme ; Virgilio Maciel ; Jace Somers Other Interventions: Discharge Summary Assessment (RN) Last Done: 06/23/22 15:14
== END 2022-06-23 15:50 | disposition home or self-care (01) ==
LOC: EDINP 00:08 → ED 00:08 → SUATTDRO 07:03 → 2N 09:33